=== PATIENT | male | born 1980 | race American Indian/Alaskan Native ===

== ENCOUNTER 2023-07-21 14:11 | Inpatient (IN) ==
[2023-07-21] MEDS ORDERED: GADOBENATE DIMEGLUMINE 20 ML/VIAL IV ONE (14:12)
[2023-07-21] MEDS: 0.9 % SODIUM CHLORIDE 1,000 ML IV ONE ×2 (14:47→20:44)
[2023-07-21] MEDS: cefTRIAXone 2 GM in DEXTROSE 5% IN WATER 50 ML IV ONE (14:51)
[2023-07-21] MEDS: DOXYCYCLINE HYCLATE 100 MG TABLET.ORL PO ONE (14:52)
[2023-07-21 15:03] LABS: Basophils # (Auto) 0.02 K/mcL (0.00-0.30); Basophils % (Auto) 0.1 % (0.0-2.0); Eosinophils # (Auto) 0 K/mcL (0.00-0.70); Eosinophils % (Auto) 0 % (0.0-7.0); Hematocrit 45.3 % (40.1-51.0); Hemoglobin 15.8 g/dL (13.7-17.5); Lymphocytes # (Auto) 0.62 K/mcL (1.50-4.80); Lymphocytes % (Auto) 3.2 % (15.5-49.0); Mean Corpuscular HGB Conc 34.9 g/dL (31.0-36.0); Mean Platelet Volume 8.6 fL (8.8-12.5); Monocytes # (Auto) 1.41 K/mcL (0.10-0.90); Monocytes % (Auto) 7.2 % (1.0-12.0); Platelet Count 295 K/mcL (140-440); RBC 4.67 M/mcL (4.63-6.08); Red Cell Distribution Width 13.1 % (11.5-14.5); WBC 19.6 K/mcL (4.5-11.0)
[2023-07-21 15:52] LABS: ALT/SGPT < 5 U/L (<40); AST/SGOT 27 U/L (<40); Albumin 2.2 gm/dL (3.2-5.2); Albumin/Globulin Ratio 0.4 (1.0-2.3); Alkaline Phosphatase 211 U/L (39-117); Bilirubin,Total 1.4 mg/dL (0.1-1.0); Blood Urea Nitrogen 19 mg/dL (6-20); Calcium 8.4 mg/dL (8.6-10.4); Carbon Dioxide 22 mmol/L (22-30); Chloride 93 mmol/L (96-108); Globulin 5.3 gm/dL (2.2-3.7); Glomerular Filtration Rate 57; Glucose 139 mg/dL (70-105)
[2023-07-21] MEDS: VANCOMYCIN 2,000 MG in 0.9 % SODIUM CHLORIDE 500 ML IV ONE (16:45)
[2023-07-21] MEDS: VANCOMYCIN PER PHARMACY IV ONE ×2 (17:10→20:21)
[2023-07-21] MEDS ORDERED: DEXTROSE 50% 50 ML VIAL IV PRN (19:28)
[2023-07-21] MEDS ORDERED: DEXTROSE 31 GM ORAL.SUSP PO PRN (19:28)
[2023-07-21] MEDS ORDERED: ONDANSETRON 4 MG/2 ML VIAL IV PRN (19:28)
[2023-07-21] MEDS ORDERED: VANCOMYCIN PER PHARMACY IV SCH (20:00)
[2023-07-21] MEDS: 0.9 % SODIUM CHLORIDE 10 ML SYRINGE IV SCH (20:40)
[2023-07-21] MEDS: CEFEPIME 2 GM VIAL IV SCH (20:40)
[2023-07-21] MEDS: SENNOSIDES 1 TABLET PO SCH (20:50)
[2023-07-21] MEDS: DOCUSATE SODIUM 100 MG CAPSULE PO SCH (20:50)
[2023-07-21] MEDS: INSULIN LISPRO 1 UNIT/0.01 ML UNIT SQ SCH (20:50)
[2023-07-21] MEDS: HEPARIN 5,000 UNIT/ML VIAL SQ SCH (21:00)
[2023-07-21] MEDS: INSULIN GLARGINE, HUMAN 1 UNIT/0.01 ML SQ SCH (21:00)
[2023-07-21] MEDS: metroNIDAZOLE 500 MG/100 ML BAG IV SCH (21:43)
[2023-07-21] MEDS: ACETAMINOPHEN 325 MG TABLET PO PRN (21:50)
[2023-07-21 21:54] LABS: Bilirubin,Direct 0.6 mg/dL (<0.3); Bilirubin,Indirect 0.3 mg/dL (0.2-0.8); Bilirubin,Total 0.9 mg/dL (0.1-1.0)
[2023-07-21 23:39] LABS: Appearance,Urine Clear (Clear); Bacteria,Urine Few /hpf (0); Bilirubin,Urine Small mg/dL (Negative); Color,Urine Yellow; Culture Indicated,Urine Yes; Glucose,Urine (UA) 100 mg/dL (Negative); Ketones,Urine Negative (Negative); Leukocyte Esterase,Urine Negative /uL (Negative); Nitrate,Urine Negative (Negative); PH,Urine 5.5 (5.0-9.0); Protein,Urine >=300 mg/dL (Negative); Urine Blood Moderate ery/mcL (Negative); Urine Granular Cast 2 /lph (0-0); Urine Hyaline Cast 2 /lph (0-2); Urine RBC 4 /hpf (0-3); Urine Squamous Epithelial Cell 0 /hpf (0-4); Urine WBC 9 /hpf (0-4)
[2023-07-22] MEDS: VANCOMYCIN 500 MG in 0.9 % SODIUM CHLORIDE 100 ML IV ONE (00:21)
[2023-07-22] MEDS: HYDROcodone/APAP 5/325MG TABLET PO PRN (04:33)
[2023-07-22] MEDS: CEFEPIME 2 GM VIAL IV SCH (06:05)
[2023-07-22] MEDS: metroNIDAZOLE 500 MG/100 ML BAG IV SCH (06:06)
[2023-07-22 06:19] LABS: Basophils # (Auto) 0.03 K/mcL (0.00-0.30); Basophils % (Auto) 0.2 % (0.0-2.0); Eosinophils # (Auto) 0.06 K/mcL (0.00-0.70); Eosinophils % (Auto) 0.4 % (0.0-7.0); Hematocrit 41.6 % (40.1-51.0); Hemoglobin 14.5 g/dL (13.7-17.5); Lymphocytes # (Auto) 0.74 K/mcL (1.50-4.80); Lymphocytes % (Auto) 4.7 % (15.5-49.0); Mean Cell Volume 98.1 fL (80.0-100.0); Mean Corpuscular HGB Conc 34.9 g/dL (31.0-36.0); Mean Platelet Volume 8.8 fL (8.8-12.5); Monocytes # (Auto) 0.87 K/mcL (0.10-0.90); Monocytes % (Auto) 5.5 % (1.0-12.0); Neutrophils % (Auto) 88.8 % (38.0-78.0); Platelet Count 272 K/mcL (140-440); RBC 4.24 M/mcL (4.63-6.08); Red Cell Distribution Width 13.3 % (11.5-14.5); WBC 15.7 K/mcL (4.5-11.0)
[2023-07-22 06:38] LABS: ALT/SGPT < 5 U/L (<40); AST/SGOT 19 U/L (<40); Albumin 2.1 gm/dL (3.2-5.2); Albumin/Globulin Ratio 0.5 (1.0-2.3); Alkaline Phosphatase 162 U/L (39-117); Bilirubin,Direct 0.7 mg/dL (<0.3); Bilirubin,Total 0.9 mg/dL (0.1-1.0); Blood Urea Nitrogen 18 mg/dL (6-20); Calcium 8.1 mg/dL (8.6-10.4); Carbon Dioxide 21 mmol/L (22-30); Chloride 99 mmol/L (96-108); Globulin 4.2 gm/dL (2.2-3.7); Glomerular Filtration Rate 74; Glucose 89 mg/dL (70-105); Lactate Dehydrogenase 227 U/L (135-225); Phosphorous 3.1 mg/dL (2.5-4.5); Triglycerides 141 mg/dL (<150); Uric Acid 6.3 mg/dL (2.5-8.0)
[2023-07-22 07:02] LABS: Estimated Average Glucose(eAG) 134 mg/dL; Hemoglobin A1C 6.3 % Hgb (4.0-6.0)
[2023-07-22] MEDS: VANCOMYCIN 2,000 MG in 0.9 % SODIUM CHLORIDE 500 ML IV SCH (10:09)
[2023-07-22 11:06] LABS: Creatinine, Spot Urine 87.6 mg/dL (39.0-259.0); Pro:Crea Ratio 6.85 (<0.20); Protein, Spot Urine > 600 mg/dL
[2023-07-22] MEDS: METOPROLOL SUCCINATE 25 MG TAB.XL.24H PO ONE (15:34)
[2023-07-22] MEDS: METOPROLOL SUCCINATE 25 MG TAB.XL.24H PO SCH (21:34)
[2023-07-23 06:48] LABS: Basophils # (Auto) 0.05 K/mcL (0.00-0.30); Basophils % (Auto) 0.4 % (0.0-2.0); Eosinophils # (Auto) 0.19 K/mcL (0.00-0.70); Eosinophils % (Auto) 1.4 % (0.0-7.0); Hematocrit 43.4 % (40.1-51.0); Hemoglobin 15.1 g/dL (13.7-17.5); Lymphocytes # (Auto) 1.26 K/mcL (1.50-4.80); Mean Cell Volume 98.4 fL (80.0-100.0); Mean Corpuscular HGB Conc 34.8 g/dL (31.0-36.0); Mean Platelet Volume 8.8 fL (8.8-12.5); Monocytes # (Auto) 0.96 K/mcL (0.10-0.90); Monocytes % (Auto) 6.8 % (1.0-12.0); Neutrophils % (Auto) 81.8 % (38.0-78.0); Platelet Count 338 K/mcL (140-440); RBC 4.41 M/mcL (4.63-6.08); Red Cell Distribution Width 13.5 % (11.5-14.5); WBC 14.1 K/mcL (4.5-11.0)
[2023-07-23 07:08] LABS: ALT/SGPT < 5 U/L (<40); AST/SGOT 23 U/L (<40); Albumin 2.3 gm/dL (3.2-5.2); Albumin/Globulin Ratio 0.5 (1.0-2.3); Alkaline Phosphatase 186 U/L (39-117); Bilirubin,Direct 0.5 mg/dL (<0.3); Bilirubin,Total 0.8 mg/dL (0.1-1.0); Blood Urea Nitrogen 17 mg/dL (6-20); Calcium 8.4 mg/dL (8.6-10.4); Carbon Dioxide 22 mmol/L (22-30); Chloride 99 mmol/L (96-108); Globulin 4.8 gm/dL (2.2-3.7); Glomerular Filtration Rate 74; Glucose 92 mg/dL (70-105); Lactate Dehydrogenase 218 U/L (135-225); Phosphorous 3.1 mg/dL (2.5-4.5); Triglycerides 165 mg/dL (<150); Uric Acid 6.4 mg/dL (2.5-8.0)
[2023-07-23 08:15] LABS: Alpha Fetoprotein NonMaternal 2.3 ng/ml (<8.7)
[2023-07-23 08:17] LABS: HCG Titer, Quantitative 1.8 mIU/mL (<2.0)
[2023-07-23] MEDS ORDERED: ONDANSETRON 4 MG/2 ML VIAL ONE (15:42)
[2023-07-23] MEDS ORDERED: ROCURONIUM 10 MG/ML ML IV ONE (15:42)
[2023-07-23] MEDS ORDERED: PROPOFOL 200 MG/20 ML VIAL IV ONE ×2 (15:42→17:58)
[2023-07-23] MEDS ORDERED: fentaNYL 100 MCG/2 ML VIAL ONE (15:42)
[2023-07-23] MEDS: BUPIVACAINE PF 0.5% 30 ML VIAL IJ ONE (17:30)
[2023-07-23] MEDS ORDERED: HYDROmorphone 1 MG/ML SYRINGE ONE (17:38)
[2023-07-23] MEDS: VANCOMYCIN 1 GM VIAL TOPICAL SCH (17:45)
[2023-07-23] MEDS: VANCOMYCIN 1 GM VIAL IP SCH (17:45)
[2023-07-23] MEDS ORDERED: SUGAMMADEX SODIUM 200 MG/2 ML VIAL IV ONE (17:47)
[2023-07-23] MEDS ORDERED: IPRATROPIUM/ALBUTEROL 3 ML AMPUL.NEB NEB PRN (18:16)
[2023-07-23] MEDS ORDERED: NALOXONE HCL 0.4 MG/ML VIAL IV PRN (18:16)
[2023-07-23] MEDS ORDERED: fentaNYL 100 MCG/2 ML VIAL IV PRN (18:16)
[2023-07-23] MEDS ORDERED: LABETALOL HCL 20 MG/4 ML VIAL IV PRN (18:17)
[2023-07-24] MEDS: 0.9 % SODIUM CHLORIDE 10 ML SYRINGE IV SCH (01:08)
[2023-07-24 06:57] LABS: ALT/SGPT < 5 U/L (<40); AST/SGOT 21 U/L (<40); Albumin 2.1 gm/dL (3.2-5.2); Albumin/Globulin Ratio 0.5 (1.0-2.3); Alkaline Phosphatase 161 U/L (39-117); Bilirubin,Direct 0.4 mg/dL (<0.3); Bilirubin,Total 0.6 mg/dL (0.1-1.0); Blood Urea Nitrogen 17 mg/dL (6-20); Calcium 8.1 mg/dL (8.6-10.4); Carbon Dioxide 24 mmol/L (22-30); Chloride 99 mmol/L (96-108); Globulin 4.3 gm/dL (2.2-3.7); Glomerular Filtration Rate 68; Glucose 108 mg/dL (70-105); Lactate Dehydrogenase 174 U/L (135-225); Phosphorous 3.7 mg/dL (2.5-4.5); Triglycerides 164 mg/dL (<150); Uric Acid 6.9 mg/dL (2.5-8.0)
[2023-07-24 08:41] LABS: Basophils # (Auto) 0.05 K/mcL (0.00-0.30); Basophils % (Auto) 0.4 % (0.0-2.0); Eosinophils # (Auto) 0.12 K/mcL (0.00-0.70); Eosinophils % (Auto) 0.8 % (0.0-7.0); Hematocrit 40.8 % (40.1-51.0); Lymphocytes # (Auto) 0.98 K/mcL (1.50-4.80); Lymphocytes % (Auto) 6.9 % (15.5-49.0); Mean Cell Volume 98.3 fL (80.0-100.0); Mean Corpuscular HGB Conc 34.3 g/dL (31.0-36.0); Mean Platelet Volume 8.8 fL (8.8-12.5); Monocytes # (Auto) 0.75 K/mcL (0.10-0.90); Monocytes % (Auto) 5.3 % (1.0-12.0); Neutrophils % (Auto) 86.2 % (38.0-78.0); Platelet Count 329 K/mcL (140-440); RBC 4.15 M/mcL (4.63-6.08); Red Cell Distribution Width 13.4 % (11.5-14.5); WBC 14.2 K/mcL (4.5-11.0)
[2023-07-24] MEDS: VANCOMYCIN 1,500 MG in 0.9 % SODIUM CHLORIDE 500 ML IV SCH (09:26)
[2023-07-24] MEDS: HYDROcodone/APAP 5/325MG TABLET PO PRN (10:52)
[2023-07-25] MEDS: AMPICILLIN SODIUM/SULBACTAM NA 3 GM in 0.9 % SODIUM CHLORIDE 100 ML IV SCH (08:27)
[2023-07-26 06:00] LABS: Basophils # (Auto) 0.07 K/mcL (0.00-0.30); Basophils % (Auto) 0.5 % (0.0-2.0); Eosinophils # (Auto) 0.24 K/mcL (0.00-0.70); Eosinophils % (Auto) 1.8 % (0.0-7.0); Hematocrit 45.3 % (40.1-51.0); Hemoglobin 15.4 g/dL (13.7-17.5); Lymphocytes % (Auto) 9.6 % (15.5-49.0); Mean Cell Volume 98.7 fL (80.0-100.0); Mean Platelet Volume 8.6 fL (8.8-12.5); Monocytes # (Auto) 0.72 K/mcL (0.10-0.90); Monocytes % (Auto) 5.3 % (1.0-12.0); Neutrophils % (Auto) 82.1 % (38.0-78.0); Platelet Count 397 K/mcL (140-440); RBC 4.59 M/mcL (4.63-6.08); Red Cell Distribution Width 13.3 % (11.5-14.5); WBC 13.5 K/mcL (4.5-11.0)
[2023-07-26 06:23] LABS: ALT/SGPT < 5 U/L (<40); AST/SGOT 30 U/L (<40); Albumin 2.6 gm/dL (3.2-5.2); Albumin/Globulin Ratio 0.5 (1.0-2.3); Alkaline Phosphatase 215 U/L (39-117); Bilirubin,Direct 0.3 mg/dL (<0.3); Bilirubin,Total 0.7 mg/dL (0.1-1.0); Blood Urea Nitrogen 13 mg/dL (6-20); Calcium 8.8 mg/dL (8.6-10.4); Carbon Dioxide 24 mmol/L (22-30); Chloride 99 mmol/L (96-108); Globulin 5.5 gm/dL (2.2-3.7); Glomerular Filtration Rate 74; Glucose 100 mg/dL (70-105); Lactate Dehydrogenase 227 U/L (135-225); Phosphorous 3.3 mg/dL (2.5-4.5); Triglycerides 183 mg/dL (<150); Uric Acid 5.8 mg/dL (2.5-8.0)
[2023-07-26] MEDS ORDERED: 0.9 % SODIUM CHLORIDE 10 ML SYRINGE IV PRN (11:01)
[2023-07-26] MEDS ORDERED: LIDOCAINE 1% 20 ML VIAL SQ ONE (12:49)
[2023-07-26] MEDS: amLODIPine 5 MG TABLET PO SCH (12:49)
[2023-07-26] MEDS ORDERED: SODIUM CHLORIDE IRRIG SOLUTION 500 ML BOTTLE IRR ONE (12:49)
[2023-07-26] MEDS ORDERED: HEPARIN SODIUM,PORCINE/PF 500 UNIT/5 ML SYRINGE IV ONE (12:49)
[2023-07-26] MEDS ORDERED: 0.9 % SODIUM CHLORIDE 10 ML SYRINGE IV SCH (21:00)
== END 2023-07-26 15:25 | disposition home or self-care (01) | DRG 239 ==
LOC: ED 14:11 → MEDSUR 19:24
PROVIDERS: ADMIT Internal Medicine; ATTEND Internal Medicine
PROC: [UNRECOGNIZED PROCEDURE] (2023-07-23 16:27)

== ENCOUNTER 2025-04-03 13:50 | Inpatient (IN) ==
[2025-04-03 15:05] LABS: Basophils # (Auto) 0.02 K/mcL (0.00-0.30); Basophils % (Auto) 0.2 % (0.0-2.0); Eosinophils # (Auto) 0.06 K/mcL (0.00-0.70); Eosinophils % (Auto) 0.5 % (0.0-7.0); Hematocrit 27.3 % (40.1-51.0); Hemoglobin 9.2 g/dL (13.7-17.5); Lymphocytes # (Auto) 0.48 K/mcL (1.50-4.80); Lymphocytes % (Auto) 4.4 % (15.5-49.0); Mean Corpuscular HGB Conc 33.7 g/dL (31.0-36.0); Monocytes # (Auto) 0.42 K/mcL (0.10-0.90); Monocytes % (Auto) 3.8 % (1.0-12.0); Neutrophils % (Auto) 88.5 % (38.0-78.0); Platelet Count 280 K/mcL (140-440); RBC 3.13 M/mcL (4.63-6.08); WBC 11.0 K/mcL (4.5-11.0)
[2025-04-03 15:12] LABS: Anion Gap 13.0 (8.0-16.0); Blood Urea Nitrogen 56 mg/dL (6-20); C-Reactive Protein 3.74 mg/dL (0.03-0.80); Calcium 7.4 mg/dL (8.6-10.4); Carbon Dioxide 22 mmol/L (22-30); Chloride 101 mmol/L (96-108); Glucose 281 mg/dL (70-105); Potassium 3.8 mmol/L (3.3-5.1); Sodium 136 mmol/L (133-145)
[2025-04-03] MEDS: PIPERACILLIN SODIUM/TAZOBACTAM 4.5 GM in DEXTROSE 5% IN WATER 50 ML IV ONE (15:14)
[2025-04-03 15:23] LABS: INR 0.9 (0.9-1.1); Prothrombin Time 12.8 sec (11.9-14.5)
[2025-04-03] MEDS: VANCOMYCIN 1,500 MG in 0.9 % SODIUM CHLORIDE 500 ML IV ONE (15:40)
[2025-04-03] MEDS ORDERED: SENNOSIDES 1 TABLET PO PRN (18:02)
[2025-04-03] MEDS ORDERED: VANCOMYCIN PER PHARMACY IV SCH (18:02)
[2025-04-03] MEDS ORDERED: POLYETHYLENE GLYCOL 3350 17 GM PACKET PO PRN (18:02)
[2025-04-03] MEDS ORDERED: ACETAMINOPHEN 325 MG TABLET PO PRN (18:02)
[2025-04-03] MEDS ORDERED: ONDANSETRON 4 MG/2 ML VIAL IV PRN (18:02)
[2025-04-03] MEDS ORDERED: DEXTROSE 50% 50 ML VIAL IV PRN (18:02)
[2025-04-03] MEDS ORDERED: DEXTROSE 31 GM ORAL.SUSP PO PRN (18:02)
[2025-04-03] MEDS: metroNIDAZOLE 500 MG/100 ML BAG IV SCH (19:55)
[2025-04-03] MEDS: CEFEPIME 2 GM VIAL IV SCH (19:56)
[2025-04-03] MEDS: LOSARTAN 50 MG TABLET PO SCH (21:08)
[2025-04-03] MEDS: SODIUM BICARBONATE 650 MG TABLET PO SCH (21:09)
[2025-04-03] MEDS: DILTIAZEM 120 MG CAP.XL.24H PO SCH (21:09)
[2025-04-03] MEDS: ATORVASTATIN 20 MG TABLET PO SCH (21:09)
[2025-04-03] MEDS: INSULIN LISPRO 1 UNIT/0.01 ML UNIT SQ SCH (21:09)
[2025-04-03] MEDS: 0.9 % SODIUM CHLORIDE 10 ML SYRINGE IV SCH (21:10)
[2025-04-03] MEDS: INSULIN GLARGINE, HUMAN 1 UNIT/0.01 ML SQ ONE (22:09)
[2025-04-04 08:36] LABS: Basophils # (Auto) 0.01 K/mcL (0.00-0.30); Basophils % (Auto) 0.1 % (0.0-2.0); Eosinophils # (Auto) 0.05 K/mcL (0.00-0.70); Eosinophils % (Auto) 0.7 % (0.0-7.0); Hematocrit 23.4 % (40.1-51.0); Hemoglobin 7.9 g/dL (13.7-17.5); Lymphocytes # (Auto) 0.84 K/mcL (1.50-4.80); Lymphocytes % (Auto) 12.1 % (15.5-49.0); Mean Corpuscular HGB Conc 33.8 g/dL (31.0-36.0); Monocytes # (Auto) 0.55 K/mcL (0.10-0.90); Monocytes % (Auto) 7.9 % (1.0-12.0); Neutrophils % (Auto) 74.9 % (38.0-78.0); Platelet Count 239 K/mcL (140-440); RBC 2.66 M/mcL (4.63-6.08); WBC 6.9 K/mcL (4.5-11.0)
[2025-04-04 08:51] LABS: ALT/SGPT 37 U/L (<40); AST/SGOT 31 U/L (<40); Albumin 2.4 gm/dL (3.2-5.2); Albumin/Globulin Ratio 0.8 (1.0-2.3); Alkaline Phosphatase 221 U/L (39-117); Anion Gap 10.0 (8.0-16.0); Bilirubin,Direct < 0.2 mg/dL (0-0.3); Bilirubin,Total 0.2 mg/dL (0.1-1.0); Blood Urea Nitrogen 57 mg/dL (6-20); Calcium 7.1 mg/dL (8.6-10.4); Carbon Dioxide 23 mmol/L (22-30); Chloride 105 mmol/L (96-108); Globulin 3.1 gm/dL (2.2-3.7); Glucose 76 mg/dL (70-105); Phosphorous 3.9 mg/dL (2.5-4.5); Potassium 3.4 mmol/L (3.3-5.1); Sodium 138 mmol/L (133-145); Triglycerides 111 mg/dL (<150); Uric Acid 9.1 mg/dL (2.5-8.0)
[2025-04-04] MEDS: FAMOTIDINE 20 MG TABLET PO SCH (10:08)
[2025-04-04 16:19] LABS: Vancomycin,Random 11.4 ug/mL
[2025-04-04] MEDS ORDERED: DIAZEPAM 10 MG/2 ML SYRINGE IV PRN (16:28)
[2025-04-04] MEDS: LABETALOL HCL 20 MG/4 ML VIAL IV PRN (17:27)
[2025-04-04] MEDS: VANCOMYCIN 1,500 MG in 0.9 % SODIUM CHLORIDE 500 ML IV ONE (17:27)
[2025-04-04] MEDS: HEPARIN 5,000 UNIT/ML VIAL SQ SCH (21:43)
[2025-04-05 03:51] LABS: Bacteria,Urine 0 /hpf (0); Bilirubin,Urine NEGATIVE (Negative); Color,Urine LT. YELLOW; Glucose,Urine (UA) 500 mg/dL (Negative); Ketones,Urine NEGATIVE (Negative); Leukocyte Esterase,Urine NEGATIVE /uL (Negative); PH,Urine 7.0 (5.0-9.0); Protein,Urine >=300 mg/dL (Negative); Specific Gravity,Urine 1.015 (1.000-1.035); Urobilinogen,Urine 0.2 mg/dL
[2025-04-05 07:39] LABS: Basophils # (Auto) 0.01 K/mcL (0.00-0.30); Basophils % (Auto) 0.1 % (0.0-2.0); Eosinophils # (Auto) 0.07 K/mcL (0.00-0.70); Eosinophils % (Auto) 0.9 % (0.0-7.0); Hematocrit 26.2 % (40.1-51.0); Hemoglobin 8.7 g/dL (13.7-17.5); Lymphocytes # (Auto) 1.12 K/mcL (1.50-4.80); Lymphocytes % (Auto) 15.0 % (15.5-49.0); Mean Corpuscular HGB Conc 33.2 g/dL (31.0-36.0); Monocytes # (Auto) 0.49 K/mcL (0.10-0.90); Monocytes % (Auto) 6.5 % (1.0-12.0); Neutrophils % (Auto) 73.8 % (38.0-78.0); Platelet Count 294 K/mcL (140-440); RBC 2.96 M/mcL (4.63-6.08); WBC 7.5 K/mcL (4.5-11.0)
[2025-04-05 07:41] LABS: ALT/SGPT 44 U/L (<40); AST/SGOT 44 U/L (<40); Albumin 2.7 gm/dL (3.2-5.2); Albumin/Globulin Ratio 0.8 (1.0-2.3); Alkaline Phosphatase 264 U/L (39-117); Anion Gap 12.0 (8.0-16.0); Bilirubin,Direct < 0.2 mg/dL (0-0.3); Bilirubin,Total 0.2 mg/dL (0.1-1.0); Blood Urea Nitrogen 56 mg/dL (6-20); Calcium 7.7 mg/dL (8.6-10.4); Carbon Dioxide 21 mmol/L (22-30); Chloride 107 mmol/L (96-108); Globulin 3.5 gm/dL (2.2-3.7); Glucose 119 mg/dL (70-105); Phosphorous 3.8 mg/dL (2.5-4.5); Potassium 3.9 mmol/L (3.3-5.1); Sodium 140 mmol/L (133-145); Triglycerides 112 mg/dL (<150); Uric Acid 8.2 mg/dL (2.5-8.0)
[2025-04-05] MEDS: 0.9 % SODIUM CHLORIDE 1,000 ML IV ONE (12:47)
[2025-04-05] MEDS: FLUCONAZOLE 400 MG/200 ML BAG IV SCH (13:25)
[2025-04-05] MEDS ORDERED: ONDANSETRON 4 MG/2 ML VIAL ONE (14:03)
[2025-04-05] MEDS ORDERED: GLYCOPYRROLATE 0.2 MG/ML VIAL IV ONE (14:03)
[2025-04-05] MEDS ORDERED: PROPOFOL 200 MG/20 ML VIAL IV ONE (14:03)
[2025-04-05] MEDS ORDERED: FAMOTIDINE/PF 20 MG/2 ML VIAL IV ONE (14:03)
[2025-04-05] MEDS ORDERED: MIDAZOLAM 2 MG/2 ML VIAL ONE (14:03)
[2025-04-05] MEDS ORDERED: LIDOCAINE 2% PF 5 ML VIAL ONE (14:03)
[2025-04-05] MEDS ORDERED: DEXAMETHASONE 10 MG/ML VIAL ONE (14:03)
[2025-04-05] MEDS ORDERED: METOCLOPRAMIDE 10 MG/2 ML VIAL ONE (14:03)
[2025-04-05] MEDS ORDERED: IPRATROPIUM/ALBUTEROL 3 ML AMPUL.NEB NEB PRN (15:14)
[2025-04-05] MEDS ORDERED: ONDANSETRON 4 MG/2 ML VIAL IV PRN (15:14)
[2025-04-05] MEDS: ACETAMINOPHEN 1,000 MG/100 ML BAG IV ONE (15:46)
[2025-04-05] MEDS: BUPIVACAINE 0.5% 50 ML VIAL IJ ONE (15:49)
[2025-04-05] MEDS: hydrALAZINE 20 MG/ML VIAL IV PRN (17:03)
[2025-04-05 17:32] LABS: Vancomycin,Random 14.3 ug/mL
[2025-04-05] MEDS: VANCOMYCIN 1,500 MG in 0.9 % SODIUM CHLORIDE 500 ML IV ONE (18:31)
[2025-04-05] MEDS: 0.9 % SODIUM CHLORIDE 10 ML SYRINGE IV SCH (20:28)
[2025-04-06 06:42] LABS: ALT/SGPT 36 U/L (<40); AST/SGOT 32 U/L (<40); Albumin 2.7 gm/dL (3.2-5.2); Albumin/Globulin Ratio 0.8 (1.0-2.3); Alkaline Phosphatase 230 U/L (39-117); Anion Gap 10.0 (8.0-16.0); Bilirubin,Direct < 0.2 mg/dL (0-0.3); Bilirubin,Total 0.2 mg/dL (0.1-1.0); Blood Urea Nitrogen 53 mg/dL (6-20); Calcium 7.8 mg/dL (8.6-10.4); Carbon Dioxide 19 mmol/L (22-30); Chloride 106 mmol/L (96-108); Globulin 3.3 gm/dL (2.2-3.7); Glucose 283 mg/dL (70-105); Phosphorous 4.1 mg/dL (2.5-4.5); Potassium 4.6 mmol/L (3.3-5.1); Sodium 135 mmol/L (133-145); Triglycerides 164 mg/dL (<150); Uric Acid 8.0 mg/dL (2.5-8.0)
[2025-04-06] MEDS: ITRACONAZOLE 100 MG CAPSULE PO SCH (08:53)
[2025-04-06] MEDS: INSULIN GLARGINE, HUMAN 1 UNIT/0.01 ML SQ SCH (09:09)
[2025-04-06 16:08] LABS: Vancomycin,Random 23.4 ug/mL
[2025-04-07 06:14] LABS: ALT/SGPT 35 U/L (<40); AST/SGOT 37 U/L (<40); Albumin 2.6 gm/dL (3.2-5.2); Albumin/Globulin Ratio 0.8 (1.0-2.3); Alkaline Phosphatase 220 U/L (39-117); Anion Gap 10.0 (8.0-16.0); Bilirubin,Direct < 0.2 mg/dL (0-0.3); Bilirubin,Total < 0.2 mg/dL (0.1-1.0); Blood Urea Nitrogen 63 mg/dL (6-20); Calcium 7.7 mg/dL (8.6-10.4); Carbon Dioxide 19 mmol/L (22-30); Chloride 106 mmol/L (96-108); Globulin 3.2 gm/dL (2.2-3.7); Glucose 138 mg/dL (70-105); Phosphorous 4.3 mg/dL (2.5-4.5); Potassium 4.3 mmol/L (3.3-5.1); Sodium 135 mmol/L (133-145); Triglycerides 195 mg/dL (<150); Uric Acid 8.1 mg/dL (2.5-8.0)
[2025-04-07] MEDS: INSULIN GLARGINE, HUMAN 1 UNIT/0.01 ML SQ SCH (08:38)
[2025-04-07 08:43] LABS: Vancomycin,Random 18.6 ug/mL
[2025-04-07] MEDS: VANCOMYCIN 500 MG in 0.9 % SODIUM CHLORIDE 100 ML IV ONE (16:59)
[2025-04-08 06:04] LABS: Vancomycin,Random 18.2 ug/mL
[2025-04-08] MEDS: TORSEMIDE 10 MG TABLET PO SCH (10:45)
[2025-04-08] MEDS: VANCOMYCIN 500 MG in 0.9 % SODIUM CHLORIDE 100 ML IV ONE (16:12)
[2025-04-09 06:51] LABS: Vancomycin,Random 18.8 ug/mL
[2025-04-09 06:52] LABS: ALT/SGPT 60 U/L (<40); AST/SGOT 82 U/L (<40); Albumin 2.6 gm/dL (3.2-5.2); Albumin/Globulin Ratio 0.9 (1.0-2.3); Alkaline Phosphatase 211 U/L (39-117); Anion Gap 11.0 (8.0-16.0); Bilirubin,Direct < 0.2 mg/dL (0-0.3); Bilirubin,Total 0.2 mg/dL (0.1-1.0); Blood Urea Nitrogen 69 mg/dL (6-20); Calcium 7.8 mg/dL (8.6-10.4); Carbon Dioxide 17 mmol/L (22-30); Chloride 106 mmol/L (96-108); Globulin 3.0 gm/dL (2.2-3.7); Glucose 84 mg/dL (70-105); Phosphorous 5.1 mg/dL (2.5-4.5); Potassium 4.4 mmol/L (3.3-5.1); Sodium 134 mmol/L (133-145); Triglycerides 114 mg/dL (<150); Uric Acid 7.4 mg/dL (2.5-8.0)
[2025-04-09] MEDS: VANCOMYCIN 500 MG in 0.9 % SODIUM CHLORIDE 100 ML IV ONE (17:10)
[2025-04-10 06:36] LABS: Vancomycin,Random 18.3 ug/mL
[2025-04-10] MEDS: VANCOMYCIN 500 MG in 0.9 % SODIUM CHLORIDE 100 ML IV SCH (17:37)
[2025-04-11] MEDS ORDERED: 0.9 % SODIUM CHLORIDE 10 ML SYRINGE IV PRN (09:52)
[2025-04-11] MEDS ORDERED: HEPARIN 10 UNITS/ML 5ML FLUSH IV ONE (13:50)
[2025-04-11] MEDS ORDERED: SODIUM CHLORIDE IRRIG SOLUTION 250 ML BOTTLE IRR ONE (13:50)
[2025-04-11] MEDS ORDERED: LIDOCAINE 1% 10 ML VIAL SQ ONE (13:50)
[2025-04-11] MEDS: HEPARIN 10 UNITS/ML 5ML FLUSH IV SCH ×2 (20:40)
[2025-04-11] MEDS: 0.9 % SODIUM CHLORIDE 10 ML SYRINGE IV SCH (20:41)
== END 2025-04-12 12:38 | DRG 617 ==
LOC: ED 13:50 → MEDSUR 17:56
PROVIDERS: ADMIT Student in an Organized Health Care Education/Training Program; ATTEND Internal Medicine